=== PATIENT | female | born 1940 | race Caucasian/White ===

== ENCOUNTER 2016-12-20 20:21 | Observation (INO) | payer MEDICARE, BC ==
--- NOTE | ~2016-12-20 | DS ---
Discharge Summary [facility] [place]. [address] NAME: DONALD PHAM : 36 STATUS : DIS Peg PAT#: [id number] AGE: 76 ADM/REG DATE : 12/21/16 MR#: [id number] REPORT SERV DATE: 12/22/16 DICTATED BY: RAMSEY CONNOR DATE: 12/22/16 REPORT STATUS : Draft TRANSCRIBED BY: MODL DATE: 12/22/16 ADMISSION DATE: 12/21/2016 DISCHARGE DATE: 12/22/2016 DISCHARGE DIAGNOSES: 1. Acute chronic obstructive pulmonary disease exacerbation. 2. Mild hypoxemia on exertion. 3. Exposure to molds. 4. Active smoking. 5. Hyponatremia. 6. Myalgias. 7. Fatigue. 8. History of hypothyroidism. CONSULTANTS: None. PROCEDURES: None. HOSPITAL COURSE: This is a 76-year-old lady with history of COPD who was admitted to the hospital with acute exacerbation of COPD. The patient actually presented to the ER after she has had mold exposure that exacerbated her COPD. Even as the patient was being admitted to the hospital, the patient was fairly stable only requiring oxygen with ambulation. The patient was monitored overnight and with IV steroids and breathing treatments, the patient did get better back to her baseline. The patient is now being discharged home with close outpatient followup plans. DISPOSITION: Home. DISCHARGE MEDICATIONS: No changes except for a Medrol Dosepak, Tessalon Perle, and an albuterol inhaler. FOLLOWUP: Please follow up with PCP in the next one to two weeks. A total of 25 minutes spent in coordinating this patient's discharge today. DICTATED BY: Ramsey Connor MD [facility]/MARIYA Ramsey Connor MD / [id number] Discharge Summary [facility] [place]. [address] NAME: DONALD PHAM : 38 STATUS : DIS Peg PAT#: [id number] AGE: 76 ADM/REG DATE : 12/21/16 MR#: [id number] REPORT SERV DATE: 12/22/16 DICTATED BY: RAMSEY CONNOR DATE: 12/22/16 REPORT STATUS : Draft TRANSCRIBED BY: MARIYA DATE: 12/22/16 CC: MD Herbert Vazquez M.D.
--- NOTE | ~2016-12-20 | HP ---
History And Physical [facility] [address]. [address] NAME: DONALD GARCIA : 36 STATUS : ADM Peg PAT#: [id number] AGE: 76 ADM/REG DATE : 12/21/16 MR#: [id number] REPORT SERV DATE: 12/21/16 DICTATED BY: VALERIE MAJANO DATE: 12/21/16 REPORT STATUS : Draft TRANSCRIBED BY: MODL DATE: 12/21/16 DATE OF ADMISSION: 12/20/2016 POINT OF ENTRY: [facility] Emergency Department. CHIEF COMPLAINT: Cough, myalgias, shortness of breath. HISTORY OF PRESENT ILLNESS: Ms. Garcia is a 76-year-old female with a history of COPD, not on home oxygen as well as hypertension and hypothyroidism, who presented emergency room today with reports of an eight-day history of severe nonproductive cough, shortness of breath, myalgias, fatigue, and flu-like symptoms. The patient states that she, about 9 days ago, recently had a mold spore exposure as she was doing some gardening and yard work at her house. Shortly after that, she developed a sensation of chest tightness with severe nonproductive hacking cough. She was seen at an [facility] last Wednesday and was given an intramuscular steroid shot as well as a prescription for doxycycline, Tessalon Perles, and unknown cough syrup. The patient states that she was compliant with these medications and she did have some improvement in her cough; however, she has continued to cough, still nonproductive, but also developed flu-like symptoms of fatigue, myalgias, weakness, some nausea. She does endorse some vague sensation of shortness of breath, but again denies any fevers, night sweats, chills, chest pain, or wheezing. Initial evaluation in the emergency department was notable for a chest x-ray that was clear with COPD-type changes. She was saturating well on room air on ABG. Labs were otherwise unremarkable. She was given some steroids and breathing treatments, but was noted to be mildly hypoxemic with ambulation at 88% to 90%, therefore decision was made to admit her to the Hospitalist Service for further evaluation and management. COMPREHENSIVE REVIEW OF SYSTEMS: Otherwise negative unless listed in history of present illness. PAST MEDICAL HISTORY: 1. COPD, not on home oxygen. 2. Active tobacco use. 3. Hypertension. 4. Hypothyroidism, not currently on replacement therapy. 5. History of multinodular goiter, status post multiple partial thyroidectomies. 6. Colonic polyps. SURGICAL HISTORY: 1. L4-L5 lumbar laminectomy. 2. Multiple thyroid nodule surgeries. 3. Cholecystectomy. 4. Abdominal hysterectomy. History And Physical [address] [place]. [address] NAME: DONALD GARCIA : 36 STATUS : ADM Peg PAT#: [id number] AGE: 76 ADM/REG DATE : 12/21/16 MR#: [id number] REPORT SERV DATE: 12/21/16 DICTATED BY: VALERIE MAJANO DATE: 12/21/16 REPORT STATUS : Draft TRANSCRIBED BY: MARIYA DATE: 12/21/16 ALLERGIES: LISINOPRIL, ZOFRAN, SULFA DRUGS, ERYTHROMYCIN, AND PENICILLIN G. HOME MEDICATIONS: 1. Tylenol 1000 mg q.6 hours p.r.n. 2. Norvasc 2.5 mg b.i.d. 3. Rebecca 180 mg daily p.r.n. 4. Ativan 0.25 mg q.6 hours p.r.n. SOCIAL HISTORY: She smokes about a pack to pack and half a day. Denies any alcohol or illicits. FAMILY HISTORY: Mother with hypertension and coronary artery disease. Father with coronary artery disease and stroke. Siblings with hypertension and coronary artery disease. LABORATORY DATA AND IMAGIN. White count 7.8, hemoglobin is 14.3, hematocrit 39.7, platelets 326. 2. Sodium is 131, potassium 4.6, chloride 96, carbon dioxide 29, BUN 11, creatinine 0.62, glucose is 96, calcium is 9.3, protein 7.5, albumin is 4.4, bilirubin is 0.5, ALT is 32, AST 25, alkaline phosphatase is 90. 3. ABG: pH is 7.44, pCO2 of 36, pO2 of 80, bicarb is 24, saturating 96% on room air. 4. Chest x-ray per my review shows COPD-type changes with hyperinflation and flattened diaphragms, but no focal consolidation or infiltrate. 5. CT scan of the brain: No acute intracranial abnormality. PHYSICAL EXAMINATION: VITAL SIGNS: Temperature is 97.0 degrees Fahrenheit, pulse is 81, respirations 16, saturating 95% on room air, blood pressure 152/73. GENERAL: The patient is awake, alert, in no acute distress, resting comfortably in bed. She is a very frail elderly female in no acute distress. HEENT: Atraumatic and normocephalic. Moist mucous membranes. Pupils equal, round, reactive to light and accommodation. Extraocular eye movements are intact. No scleral icterus. NECK: No jugular venous distention. No carotid bruits. CARDIAC: Regular rate and rhythm. No murmurs or gallops. Normal S1, normal S2. LUNGS: Decreased breath sounds at the bases as well as prolonged expiratory phase, but I do not appreciate any wheezes, rhonchi, or crackles. She is currently in no acute distress at this time. She does have a frequent dry hacking cough. ABDOMEN: Soft, nontender, nondistended. Good bowel sounds. No rebound, guarding, or rigidity. EXTREMITIES: Warm and well perfused. No cyanosis, clubbing, or edema. SKIN: Warm and dry. PSYCH: Affect appropriate. NEURO: Alert and oriented x3. Cranial nerves 2 through 12 are grossly intact. Speech is normal. Gait is not assessed. ASSESSMENT: Ms. Garcia is a 76-year-old female with history of chronic obstructive pulmonary disease and active tobacco abuse, who presents with a recent mold spore exposure with associated dry cough, shortness of breath, fatigue, myalgias, and flu-like symptoms and History And Physical [address] [address] NAME: DONALD GARCIA : 36 STATUS : ADM Peg PAT#: [id number] AGE: 76 ADM/REG DATE : 12/21/16 MR#: [id number] REPORT SERV DATE: 12/21/16 DICTATED BY: VALERIE MAJANO DATE: 12/21/16 REPORT STATUS : Draft TRANSCRIBED BY: MODPretty DATE: 12/21/16 found to have evidence of acute COPD exacerbation. PROBLEM LIST: 1. Acute COPD exacerbation. 2. Mild hypoxemia on exertion. 3. Active tobacco abuse. 4. Hyponatremia. 5. Myalgias. 6. Fatigue. 7. History of hypothyroidism. PLAN: 1. Acute COPD exacerbation. After receiving breathing treatments and steroids, the patient is feeling much better and does not have any appreciable wheezing on exam when I have seen her. We will continue oral prednisone therapy and p.r.n. DuoNeb. 2. Hypoxemia. The patient is saturating well on room air at rest, but is mildly hypoxemic with exertion. We will treat with steroids and DuoNeb, and reassess in the morning her need for possible oxygen at home. 3. Active tobacco abuse. Nicotine replacement protocol. 4. Hyponatremia. Provide some IV fluid hydration. 5. Myalgias and flu-like symptoms. Suspect this is all due to some inflammatory response to her mold exposure. She has stable vital signs, no white count, and otherwise laboratory and radiographic exams have been unremarkable. We will continue supportive care with steroids, antiemetics, and antitussive medications. 6. DVT prophylaxis: Lovenox subcu. 7. Code status: The patient wishes to be full code. JCB/MODL Valerie Majano MD / [id number] CC: Herbert Lau M.D.
[~2016-12-20 20:21] MED LIST: ACET500CAP PO; ALLEGRA180 PO; ASAB PO; ATIVAN; ATV.5 PO; CAT1 PO; CLONIDINE; MIRALAXPKT PO; MUCINEX600 MG PO; NORV25 PO; OS500 PO; PRILO PO; PROVHFA INH; SYN075 PO; T200 PO
[2016-12-20 22:41] LABS: BASOPHILS 0.5 %; BASOPHILS ABSOLUTE 0.04 10/3/uL (0.0-0.16); EOSINOPHILS 1.8 %; EOSINOPHILS ABSOLUTE 0.14 10/3/uL (0.0-0.53); HEMATOCRIT 39.7 % (36.0-48.0); HEMOGLOBIN 14.3 g/dL (12.0-16.0); IMMATURE GRANULOCYTES 0.8 %; IMMATURE GRANULOCYTES ABSOLUTE 0.06 10/3/uL (0.0-0.11); LYMPHOCYTES 35.2 %; LYMPHOCYTES ABSOLUTE 2.75 10/3/uL (0.67-4.30); MANUAL DIFF NO %; MEAN CORPUSCULAR HEMOGLOB 31.9 pg (26.0-34.0); MEAN CORPUSCULAR VOLUME 88.6 fL (80-100); MEAN PLATELET VOLUME 9.2 fL (9.2-13.0); NEUTROPHILS 52.7 %; NEUTROPHILS ABSOLUTE 4.13 10/3/uL (2.02-8.40); PLATELET COUNT 326 10/3/uL (150-400); RBC DISTRIBUTION WIDTH 12.8 % (12.0-16.0); RED CELL COUNT 4.48 10/6/uL (4.0-5.6); WHITE BLOOD CELLS 7.8 10/3/uL (4.5-10.5)
[2016-12-20 22:54] LABS: A/G RATIO 1.4 (0.7-1.9); ALBUMIN 4.4 G/DL (3.5-5.0); ALKALINE PHOSPHATASE 90 U/L (45-117); BUN (BLOOD UREA NITROGEN) 11 MG/DL (6-23); CALCIUM, SERUM 9.3 MG/DL (8.5-10.4); CHLORIDE, SERUM 96 MMOL/L (96-112); CO2 (CARBON DIOXIDE) 29 MMOL/L (24-34); CREATININE 0.62 MG/DL (0.55-1.02); GFR AFRICAN AMERICAN 100 ML/MIN (>=60); GFR NON AFRICAN AMERICAN 86 ML/MIN (>=60); GLOBULIN 3.1 G/DL (2.5-4.1); POTASSIUM, SERUM 4.6 MMOL/L (3.5-5.3); SGOT(AST) 25 U/L (5-40); SGPT(ALT) 32 U/L (5-65); TOTAL BILIRUBIN 0.5 MG/DL (0-1.2); TOTAL PROTEIN 7.5 G/DL (6.0-8.5)
[2016-12-20 22:55] LABS: GLUCOSE, SERUM 96 MG/DL (60-99); SODIUM, SERUM 131 MMOL/L (135-148)
[2016-12-21] LABS: ALLENS TEST Pos; BE (BASE EXCESS) 0.2 MEQ/L (0 +/- 2.5); CARBOXYHEMOGLOBIN 2.9 % (0-3); HCO3 (ACTUAL BICARBONATE) 23.9 MEQ/L (23-27); HEMOBLOGIN CONTENT 14.3 G/DL (12-16); INSTRUMENT SERIAL # 8087; METHEMOGLOBIN 0.2 % (0-3); O2 CONTENT 18.7 VOL% (18-24); OPERATOR ID 17589; PCO2 (CO2 TENSION) 36 MMHG (35-45); PO2 (O2 TENSION) 80 MMHG (79-93); SAMPLE Arterial; pH 7.44 (7.37-7.43)
[2016-12-21] MEDS ORDERED: MUCINEX600 MG PO (05:12)
[2016-12-21 09:28] LABS: FREE T4 1.37 NG/DL (0.76-1.46)
[2016-12-21 09:29] LABS: ULTRASENSITIVE TSH 1.36 MCIU/ML (0.358-3.740)
[2016-12-22 05:46] LABS: BUN (BLOOD UREA NITROGEN) 9 MG/DL (6-23); CALCIUM, SERUM 8.7 MG/DL (8.5-10.4); CHLORIDE, SERUM 103 MMOL/L (96-112); CO2 (CARBON DIOXIDE) 27 MMOL/L (24-34); CREATININE 0.55 MG/DL (0.55-1.02); GFR AFRICAN AMERICAN 104 ML/MIN (>=60); GFR NON AFRICAN AMERICAN 90 ML/MIN (>=60); GLUCOSE, SERUM 98 MG/DL (60-99); POTASSIUM, SERUM 3.7 MMOL/L (3.5-5.3); SODIUM, SERUM 135 MMOL/L (135-148)
[2016-12-22] MEDS ORDERED: MEDROLPAK4 PO (11:24)
[2016-12-22] MEDS ORDERED: VENTOLIN HFA INH (11:25)
[2016-12-22] MEDS ORDERED: TESS PO (11:25)
== END 2016-12-22 12:33 | disposition home or self-care (01) ==
LOC: ER 20:21 → 4SO 12-21 03:00
PROVIDERS: Hospitalist; Nurse Practitioner Acute Care
DX: J44.1 Chronic obstructive pulmonary disease with (acute) exacerbation (principal); F17.210 Nicotine dependence, cigarettes, uncomplicated; E87.1 Hypo-osmolality and hyponatremia; M79.1 Myalgia; E89.0 Postprocedural hypothyroidism; R53.83 Other fatigue; Z90.49 Acquired absence of other specified parts of digestive tract; Z90.710 Acquired absence of both cervix and uterus; Z98.890 Other specified postprocedural states; Z88.2 Allergy status to sulfonamides; Z77.120 Contact with and (suspected) exposure to mold (toxic); Z88.1 Allergy status to other antibiotic agents; Z88.0 Allergy status to penicillin; Z88.8 Allergy status to other drugs, medicaments and biological substances; Z79.899 Other long term (current) drug therapy; Z82.49 Family history of ischemic heart disease and other diseases of the circulatory system; Z82.3 Family history of stroke
CPT/HCPCS: 36600; 70450; 71020; 80048; 80053; 82805; 84439; 84443; 85025; 87040; 87070; 87150; 87205; 93005; 94640; 96374; 99285; A9270-GY; G0378; J2930